=== PATIENT | male | born 1975 | race Caucasian/White ===

== ENCOUNTER → 2019-07-25 15:36 | Outpatient (BNVA) | payer BC, SELFPAY | PROVIDERS: Family Provider Family Medicine; PCP Family Medicine; Visit Provider Family Medicine | DX: D64.9 Anemia, unspecified (principal); I82.409 Acute embolism and thrombosis of unspecified deep veins of unspecified lower extremity | CPT/HCPCS: 85025 ==

== ENCOUNTER → 2019-12-19 15:24 | Outpatient (BNVA) | payer BC, SELFPAY | PROVIDERS: Family Provider Family Medicine; PCP Family Medicine; Visit Provider Nurse Practitioner Family | DX: B37.0 Candidal stomatitis (principal); Z03.818 Encounter for observation for suspected exposure to other biological agents ruled out; J32.9 Chronic sinusitis, unspecified | CPT/HCPCS: 87635 ==

== ENCOUNTER → 2020-06-05 12:30 | Outpatient (BNVA) | payer BC, SELFPAY | PROVIDERS: Family Provider Family Medicine; PCP Family Medicine; Visit Provider Nurse Practitioner Family | DX: R05 Cough (principal); B37.0 Candidal stomatitis; Z03.818 Encounter for observation for suspected exposure to other biological agents ruled out | CPT/HCPCS: 87635 ==